=== PATIENT | female | born 1980 | race Caucasian/White ===

== ENCOUNTER 2016-05-30 22:28 | Inpatient (IN) | payer MEDICAID ==
[2016-05-30] MEDS ORDERED: Lidocaine 1% 30 ML SDV ONE (22:49)
[2016-05-30] MEDS ORDERED: Methylergonovine 0.2 MG/1 ML Amp ONE (23:05)
[2016-05-30] MEDS ORDERED: Misoprostol 400 MCG (4 X 100 MCG TAB) ONE (23:05)
[2016-05-30] MEDS ORDERED: Methylergonovine 0.2 MG/1 ML Amp IM PRN (23:13)
[2016-05-30] MEDS ORDERED: Misoprostol 400 MCG (4 X 100 MCG TAB) RECTAL PRN (23:13)
[2016-05-30] MEDS ORDERED: Sodium Chloride 0.9% 10 ML Syringe FLUSH PRN (23:13)
[2016-05-30] MEDS ORDERED: Acetaminophen 325 MG Tab PO PRN (23:13)
[2016-05-30] MEDS ORDERED: Carboprost Tromethamine 250 MCG/1 ML Amp IM PRN (23:13)
[2016-05-30] MEDS ORDERED: Lidocaine 1% 30 ML SDV INJECT PRN (23:13)
[2016-05-30] MEDS ORDERED: Ondansetron 4 MG/2 ML SDV IV PRN (23:13)
[2016-05-30] MEDS ORDERED: Lactated Ringers 1,000 ML IV SCH (23:15)
[2016-05-30] MEDS ORDERED: Ibuprofen 800 MG Tab PO PRN (23:21)
[2016-05-30] MEDS ORDERED: Zolpidem 5 MG Tab PO PRN (23:21)
[2016-05-30] MEDS ORDERED: Benzocaine/Menthol 20%-0.5% Spray 56 GM Canister TOP PRN (23:21)
[2016-05-30] MEDS ORDERED: Simethicone 80 MG Tab.Chew PO PRN (23:21)
[2016-05-30] MEDS ORDERED: Docusate Sodium 100 MG Cap PO PRN (23:21)
[2016-05-30 23:38] LABS: CHLORIDE,CL 105 mmol/L (101-111); SODIUM,NA 134 mmol/L (135-145)
[2016-05-31] MEDS ORDERED: Oxytocin/Normal Saline 30 UNIT/500 ML BAG IV SCH (00:15)
--- NOTE | 2016-05-31 03:54 | HP ---
CHIEF COMPLAINT: "I am in labor." HISTORY OF PRESENT ILLNESS: Ms. Soriano is a 35-year-old, 10, para 5-1- 3-6 female who reports to Labor and Delivery at [facility] in [facility] in active labor. On admission, she was noted to be completely dilated with a bulging bag of basilio. She did not have any care and before she broke her bag of basilio, I had Dr. Nabeel Graves here for the infant and we did have an ultrasound accomplished which put the fetus measuring at approximately 32-1/2 weeks gestation. Her last menstrual period was 09/29/2015 which puts her at approximately 35 weeks' gestation. She states she has been using methamphetamine throughout the . She denies any nausea, vomiting, or diarrhea. No fever or chills. No hematochezia, hematemesis, or hematuria. No dysuria, frequency, urgency with urination. No leg pain, leg edema, back pain, epigastric pain, scotomata, or headaches now. PAST MEDICAL HISTORY: Positive for migraine headaches, but she denies any history of hypertension, heart disease, seizure disorder, thyroid disorder, cancer, diabetes, thromboembolic disease, blood transfusions, or breast lesions. No history of asthma. PAST SURGICAL HISTORY: Cholecystectomy in 2016. SOCIAL HISTORY: She uses approximately a pack a day of tobacco/cigarettes. She denies any alcohol use. She does use methamphetamine, but denies any other drug use. She lives in [place] with her significant other and 3 of her children. FAMILY HISTORY: Positive for diabetes, hypertension, heart disease, cancer, and asthma. No family history of lung problems or kidney disease. ALLERGIES: Penicillin. OB HISTORY: 02/14/2015, delivery of 7 pounds 9 ounce male infant at approximately 37 weeks' gestation via normal spontaneous vaginal delivery. She had no care and was positive for methamphetamine during that also. 02/18/2014, delivery of a 7 pounds 9 ounce female infant via normal spontaneous vaginal delivery at term. 05/28/2012, delivery of a 5 pounds 15 ounce female infant via normal spontaneous vaginal delivery at 36 weeks' gestation. 03/16/2010, delivery of 5 pounds 7 ounces male via normal spontaneous vaginal delivery at term. November 21, 2004, delivery of 9 pounds 9 ounce male via normal spontaneous vaginal delivery in [place]. 08/16/2002, delivery of an 8 pounds 4 ounce male via normal spontaneous vaginal delivery at term. She has had 3 spontaneous VBs. REVIEW OF SYSTEMS: All pertinent positive and negative review of systems per HPI. All other systems are reviewed and are negative. OBJECTIVE: General: Well-developed, well-nourished female, in no acute distress secondary to contractions. HEENT: Unremarkable. Neck: Supple without adenopathy or thyromegaly. Lungs: Clear to auscultation. No wheezing, rhonchi, or rales noted. Cardiovascular: Regular rate and rhythm. No murmurs. Abdomen: Gravid, nontender. Contractions every 2 minutes. Category 1 strip with a few decelerations noted just before delivery. Cervix completely dilated. +[address] Nabeel Graves arrived, artificial rupture membranes occurred with moderate meconium-stained fluid. Back: No CVA tenderness. Extremities: No edema, erythema, or tenderness noted. DTRs 2+ over 4 in all areas. No clonus. Neurological: Sensorimotor intact. ASSESSMENT: 1. A 35-year-old, 10, para 5-1-3-6 female in active labor. 2. labor. 3. No care. 4. By last menstrual period approximately 35 weeks' gestation by ultrasound at 32-1/2 weeks' gestation. 5. Group B strep, unknown, was unable to obtain because of precipitous labor and delivery. 6. Positive methamphetamine use per patient. 7. Nicotine addiction. PLAN: 1. Vaginal delivery. 2. New OB labs accomplished. 3. Beveling Machine Operator to be consulted. 4. All questions answered. [facility] /[phone]
[2016-05-31] MEDS ORDERED: Prenatal Multivitamin with Calcium/Folic Acid/Iron Tab PO SCH (09:00)
[2016-05-31 09:32] VITALS: BP 101/60
--- NOTE | 2016-05-31 12:00 | PCM.DCSUM1 ---
Discharge Summary - Hospital Course Free Text/Narrative:: 35 y.o. 10 para 5-1-3-6 female LMP- September EDC June, EGA 34 6/7 weeks gestation by patient history arrived to labor and delivery completely dilated. No care. She was wanting to push. As soon as Dr. Rangel arrived Artificial rupture of membranes occured with moderate meconium stained fluid was noted. She had 3 pushes with delivery of a viable female , OA over a intact perineum. The weighed 4lbs 9oz with 's of 7 and 8. The patient recovered and the went to the nursery. The patient came in and delivered so precipitously we were unable to get antibiotics in. The infant was transferred to [facility] by their NICU team. The pateint recovered and tolerated her diet well. She was afebrile, vital signs were stable and she ambultated quite well. She had minimal lochia and desired to be discharged on Day # 1. Social work was consulted and a Form 960 was filled out because of positive urine drug screen for Methamphetamine/Amphetamine. The patient did admit to use throughout the . HPI Initial Comments: Discharge Instructions 1. Discharge to home. 2, Follow-up with Renato Pritchett in 6 weeks for recheck. 3. Ibuprofen/Tylenol for pain control. 4. No douching,Tampons or intercourse for 6 weeks. 5. Discharge instructions including follow-up, medications, activity, and diet was discussed. She understood this and is willing to comply with this. 6. Smoking cessation and Methamphetamine cessation discussed. 7. All questions answered. Discharge Diagnosis 1. 34 6/7 week Intrauterine by patient history. 2. No care. 3. Advanced dilitation on admission. 4. Artificial rupture of membranes. 5. Moderate meconium stained fluid. 6. Precipitous Normal spontaneous vaginal delivery. 7. Viable female , 4lbs 9 oz 's- 7 and 8. 8. Methamphetamine use throughout . 9. Nicotine addicition. - Discharge Data Discharge Date: 05/31/16 (PPD # 1) Discharge Disposition: Home, Self-Care 01 Condition: Good - Patient Summary/Data Consults: Consultations 05/30/16 23:13 Consult to Print Graphic Designer [CONS] Routine - Patient Instructions Diet: Regular Diet as Tolerated Activity: As Tolerated, Full Weight Bearing Showering/Bathing: July Shower Notify Provider of: Fever, Increased Pain, Swelling and Redness, Drainage, Nausea and/or Vomiting - Discharge Plan Home Medications: Home Meds . [No Known Home Meds] 05/31/16 [History] - Discharge Summary/Plan Comment DC Time >30 min.: Yes - General Info Date of Service: 05/31/16 (PPD # 1) Functional Status: Reports: pain controlled, tolerating diet, ambulating, urinating - Review of Systems General: Reports: No Symptoms HEENT: Reports: no symptoms Pulmonary: Reports: no symptoms Cardiovascular: Reports: No Symptoms Gastrointestinal: Reports: No symptoms Genitourinary: Reports: no symptoms Musculoskeletal: Reports: no symptoms Skin: Reports: no symptoms Neurological: Reports: No Symptoms Psychiatric: Reports: no symptoms - Patient Data Vitals - Most Recent: Last Vital Signs Temp 98.1 F 05/31/16 09:31 Pulse 68 05/31/16 09:31 Resp 16 05/31/16 09:31 BP 101/60 05/31/16 09:31 Pulse Ox 100 05/31/16 09:31 Weight - Most Recent: 225 lb I&O - Last 24 hours: Intake & Output 05/30/16 05/31/16 05/31/16 22:59 06:59 14:59 Intake Total 1500 Balance 1500 Lab Results - Last 24 hrs: Laboratory Results - last 24 hr 05/30/16 05/30/16 05/30/16 Range/Units 22:50 22:50 23:00 WBC 10.3 H (5.0-10.0) 10^3/uL RBC 4.87 (4.2-5.4) 10^6/uL Hgb 11.9 L (12.0-16.0) g/dL Hct 36.9 L (37.0-47.0) % MCV 75.8 L (80-100) fL MCH 24.4 L (27.0-34.0) pg MCHC 32.2 L (33.0-35.0) g/dL Plt Count 278 (150-450) 10^3/uL Sodium (135-145) mmol/L Potassium (3.6-5.0) mmol/L Chloride (101-111) mmol/L Carbon Dioxide (21.0-31.0) mmol/L Anion Gap BUN (7-18) mg/dL Creatinine (0.6-1.3) mg/dL Est Cr Clr Drug Dosing mL/min Estimated GFR (MDRD) BUN/Creatinine Ratio Glucose (74-105) mg/dL Uric Acid (2.6-7.2) mg/dL Calcium (8.4-10.2) mg/dl Total Bilirubin (0.2-1.0) mg/dL AST (10-42) IU/L ALT (10-60) IU/L Alkaline Phosphatase (42-121) IU/L Lactate Dehydrogenase (91-180) IU/L Total Protein (6.7-8.2) g/dl Albumin (3.2-5.5) g/dl Globulin Albumin/Globulin Ratio Urine Color Dark yellow (YELLOW) Urine Appearance Slightly cloudy (CLEAR) Urine pH 6.0 (5.0-9.0) Ur Specific [place] >= 1.030 (1.005-1.030) Urine Protein Negative (NEGATIVE) Urine Glucose (UA) Negative (NEGATIVE) Urine Ketones Trace H (NEGATIVE) Urine Occult Blood Negative (NEGATIVE) Urine Nitrite Negative (NEGATIVE) Urine Bilirubin Small H (NEGATIVE) Urine Urobilinogen 2.0 H (0.2-1.0) mg/dL Ur Leukocyte Esterase Negative (NEGATIVE) Urine RBC 0-5 /HPF Urine WBC 0-5 (0-5/HPF) /HPF Ur Epithelial Cells Moderate H /HPF Urine Bacteria Rare (0-FEW/HPF) /HPF Urine Mucus Moderate H /LPF Urine Opiates Screen Negative (NEGATIVE) Ur Oxycodone Screen Negative (NEGATIVE) Urine Methadone Screen Negative (NEGATIVE) Ur Barbiturates Screen Negative (NEGATIVE) U Tricyclic Antidepress Negative (NEGATIVE) Ur Phencyclidine Scrn Negative (NEGATIVE) Ur Amphetamine Screen Positive H (NEGATIVE) U Methamphetamines Scrn Positive H (NEGATIVE) Urine MDMA Screen Negative (NEGATIVE) U Benzodiazepines Scrn Negative (NEGATIVE) Urine Cocaine Screen Negative (NEGATIVE) U Marijuana (THC) Screen Negative (NEGATIVE) Blood Type Gel Antibody Screen 05/30/16 05/30/16 05/31/16 Range/Units 23:00 23:00 06:05 WBC 9.6 (5.0-10.0) 10^3/uL RBC 4.76 (4.2-5.4) 10^6/uL Hgb 11.6 L (12.0-16.0) g/dL Hct 36.8 L (37.0-47.0) % MCV 77.3 L (80-100) fL MCH 24.4 L (27.0-34.0) pg MCHC 31.5 L (33.0-35.0) g/dL Plt Count 258 (150-450) 10^3/uL Sodium 134 L (135-145) mmol/L Potassium 3.8 (3.6-5.0) mmol/L Chloride 105 (101-111) mmol/L Carbon Dioxide 19.0 L (21.0-31.0) mmol/L Anion Gap 13.8 BUN 9 (7-18) mg/dL Creatinine 0.5 L (0.6-1.3) mg/dL Est Cr Clr Drug Dosing 165.09 mL/min Estimated GFR (MDRD) > 60 BUN/Creatinine Ratio 18.00 Glucose 83 (74-105) mg/dL Uric Acid 5.1 (2.6-7.2) mg/dL Calcium 8.6 (8.4-10.2) mg/dl Total Bilirubin 0.5 (0.2-1.0) mg/dL AST 15 (10-42) IU/L ALT 8 L (10-60) IU/L Alkaline Phosphatase 156 H (42-121) IU/L Lactate Dehydrogenase 170 (91-180) IU/L Total Protein 7.4 (6.7-8.2) g/dl Albumin 3.0 L (3.2-5.5) g/dl Globulin 4.4 Albumin/Globulin Ratio 0.68 Urine Color (YELLOW) Urine Appearance (CLEAR) Urine pH (5.0-9.0) Ur Specific [place] (1.005-1.030) Urine Protein (NEGATIVE) Urine Glucose (UA) (NEGATIVE) Urine Ketones (NEGATIVE) Urine Occult Blood (NEGATIVE) Urine Nitrite (NEGATIVE) Urine Bilirubin (NEGATIVE) Urine Urobilinogen (0.2-1.0) mg/dL Ur Leukocyte Esterase (NEGATIVE) Urine RBC /HPF Urine WBC (0-5/HPF) /HPF Ur Epithelial Cells /HPF Urine Bacteria (0-FEW/HPF) /HPF Urine Mucus /LPF Urine Opiates Screen (NEGATIVE) Ur Oxycodone Screen (NEGATIVE) Urine Methadone Screen (NEGATIVE) Ur Barbiturates Screen (NEGATIVE) U Tricyclic Antidepress (NEGATIVE) Ur Phencyclidine Scrn (NEGATIVE) Ur Amphetamine Screen (NEGATIVE) U Methamphetamines Scrn (NEGATIVE) Urine MDMA Screen (NEGATIVE) U Benzodiazepines Scrn (NEGATIVE) Urine Cocaine Screen (NEGATIVE) U Marijuana (THC) Screen (NEGATIVE) Blood Type A POSITIVE Gel Antibody Screen Negative Med Orders - Current: Current Medications Acetaminophen (Tylenol) 650 mg PO Q4H PRN PRN Reason: Pain (Mild 1-3) and fever Benzocaine/Menthol (Dermoplast Pain Relief [place]) 0 gm TOP Q4H PRN PRN Reason: Perineal comfort measures Carboprost Tromethamine (Hemabate Ds) 250 mcg IM ASDIRECTED PRN PRN Reason: HEMORRHAGE Docusate Sodium (Colace) 100 mg PO BID PRN PRN Reason: Constipation Lactated Ringer's (Ringers, Lactated) 1,000 mls @ 125 mls/hr IV ASDIRECTED DANELLE Last Admin: 05/30/16 22:45 Dose: 125 mls/hr Oxytocin/Sodium Chloride (Pitocin In Ns 30 Unit/500 Ml) 30 unit in 500 mls @ 500 mls/hr IV TITRATE DANELLE; 500 MUNITS/MIN PRN Reason: Protocol Last Titration: 05/31/16 01:06 Dose: Infused Ibuprofen (Motrin) 800 mg PO Q8H PRN PRN Reason: Mild Pain or Fever Lidocaine HCl (Xylocaine-Mpf 1%) 10 ml INJECT ASDIRECTED PRN PRN Reason: Perineal Repair Methylergonovine Maleate (Methergine) 0.2 mg IM ASDIRECTED PRN PRN Reason: Hemorrhage Misoprostol (Cytotec) 800 mcg RECTAL ASDIRECTED PRN PRN Reason: Hemorrhage Ondansetron HCl (Zofran) 4 mg IV Q4H PRN PRN Reason: Nausea/Vomiting Prenat Multivit/[place]/Iron/Folic Ac ( Plus Iron) 1 each PO DAILY DANELLE Simethicone (Simethicone) 80 mg PO Q4H PRN PRN Reason: Gas Sodium Chloride (Saline Flush) 10 ml FLUSH ASDIRECTED PRN PRN Reason: Keep Vein Open Zolpidem Tartrate (Ambien) 5 mg PO BEDTIME PRN PRN Reason: Insomnia Stop: 05/31/16 21:01 Discontinued Medications Lidocaine HCl (Xylocaine-Mpf 1%) Confirm Administered Dose 30 ml .ROUTE .STK- MED ONE Stop: 05/30/16 22:50 Last Admin: 05/31/16 00:21 Dose: Not Given Methylergonovine Maleate (Methergine) Confirm Administered Dose 0.2 mg .ROUTE .STK-MED ONE Stop: 05/30/16 23:06 Last Admin: 05/31/16 00:22 Dose: Not Given Misoprostol (Cytotec) Confirm Administered Dose 1,200 mcg .ROUTE .STK-MED ONE Stop: 05/30/16 23:06 Last Admin: 05/31/16 00:22 Dose: Not Given - Exam General: Reports: alert, oriented, cooperative, no acute distress HEENT: Reports: Pupils equal, Pupils reactive Neck: Reports: supple Lungs: Reports: Clear to auscultation, Normal respiratory effort Cardiovascular: Reports: Regular Rate, Regular Rhythm, No Murmurs Abdomen: Reports: bowel sounds present, soft, no tenderness, no distension, other (Fundal height firm below the umbilicus) (Female) Exam: Normal external exam (Minimal lochia) Back Exam: Reports: normal inspection, full range of motion Extremities: Reports: no edema, normal pulses, no tenderness/swelling Skin: Reports: warm, dry, intact Neurological: Reports: no new focal deficit, normal gait, normal speech, normal tone, strength equal bilateral Psy/Mental Status: Reports: alert, normal affect, normal mood Discharge Operative/Procedures - Procedures Performed Operations/Procedure Comment: Normal spontaneous vaginal delivery over intact perineum. Viable female infant *Q Meaningful Use (DIS) - VTE *Q VTE Criteria *Q: - Stroke *Q Stroke Criteria *Q: - AMI *Q AMI Criteria *Q:
--- NOTE | 2016-05-31 12:26 | PCM.DEL ---
L & D Note - General Info Date of Service: 05/30/16 (1228) - Delivery Note Labor: spontaneous, augmented by ARM Delivery Outcome: Livebirth Delivery Mode: Spontaneous Presentation: Vertex Nuchal cord: none Anesthesia Type: None, Spinal Amniotic Fluid Description: Meconium stained (moderate stained fluid) Episiotomy Type: None Laceration: none Placenta: intact, spontaneous Cord: 3 vessels Estimated blood loss: 300 Resuscitation needed: Yes : suctioned, bulb syringe, stimulated, warmed, blanket used, warmer used Provider: Zia Reyna Score 1 min: 7 Score 5 min: 8 Second Stage Interventions: Reports: Pushing Effectively Delivery Comments (Free Text/Narrative):: , OA, Viable female infant over intact perineum Cord 3 vessel, not around neck, Placenta delivered by simple expression intact. Labia, Vagina and cervix inspected and intact. No complications. to nursery. Weight 4lbs 9oz, 's- 7 and 8. - Patient Data Vitals - most recent: Last Vital Signs Temp 98.1 F 05/31/16 09:31 Pulse 68 05/31/16 09:31 Resp 16 05/31/16 09:31 BP 101/60 05/31/16 09:31 Pulse Ox 100 05/31/16 09:31 Weight - most recent: 225 lb I&O - last 24 hours: Intake & Output 05/30/16 05/31/16 05/31/16 22:59 06:59 14:59 Intake Total 1500 Balance 1500 Lab Results last 24 hrs: Laboratory Results - last 24 hr 05/30/16 05/30/16 05/30/16 Range/Units 22:50 22:50 23:00 WBC 10.3 H (5.0-10.0) 10^3/uL RBC 4.87 (4.2-5.4) 10^6/uL Hgb 11.9 L (12.0-16.0) g/dL Hct 36.9 L (37.0-47.0) % MCV 75.8 L (80-100) fL MCH 24.4 L (27.0-34.0) pg MCHC 32.2 L (33.0-35.0) g/dL Plt Count 278 (150-450) 10^3/uL Sodium (135-145) mmol/L Potassium (3.6-5.0) mmol/L Chloride (101-111) mmol/L Carbon Dioxide (21.0-31.0) mmol/L Anion Gap BUN (7-18) mg/dL Creatinine (0.6-1.3) mg/dL Est Cr Clr Drug Dosing mL/min Estimated GFR (MDRD) BUN/Creatinine Ratio Glucose (74-105) mg/dL Uric Acid (2.6-7.2) mg/dL Calcium (8.4-10.2) mg/dl Total Bilirubin (0.2-1.0) mg/dL AST (10-42) IU/L ALT (10-60) IU/L Alkaline Phosphatase (42-121) IU/L Lactate Dehydrogenase (91-180) IU/L Total Protein (6.7-8.2) g/dl Albumin (3.2-5.5) g/dl Globulin Albumin/Globulin Ratio Urine Color Dark yellow (YELLOW) Urine Appearance Slightly cloudy (CLEAR) Urine pH 6.0 (5.0-9.0) Ur Specific [place] >= 1.030 (1.005-1.030) Urine Protein Negative (NEGATIVE) Urine Glucose (UA) Negative (NEGATIVE) Urine Ketones Trace H (NEGATIVE) Urine Occult Blood Negative (NEGATIVE) Urine Nitrite Negative (NEGATIVE) Urine Bilirubin Small H (NEGATIVE) Urine Urobilinogen 2.0 H (0.2-1.0) mg/dL Ur Leukocyte Esterase Negative (NEGATIVE) Urine RBC 0-5 /HPF Urine WBC 0-5 (0-5/HPF) /HPF Ur Epithelial Cells Moderate H /HPF Urine Bacteria Rare (0-FEW/HPF) /HPF Urine Mucus Moderate H /LPF Urine Opiates Screen Negative (NEGATIVE) Ur Oxycodone Screen Negative (NEGATIVE) Urine Methadone Screen Negative (NEGATIVE) Ur Barbiturates Screen Negative (NEGATIVE) U Tricyclic Antidepress Negative (NEGATIVE) Ur Phencyclidine Scrn Negative (NEGATIVE) Ur Amphetamine Screen Positive H (NEGATIVE) U Methamphetamines Scrn Positive H (NEGATIVE) Urine MDMA Screen Negative (NEGATIVE) U Benzodiazepines Scrn Negative (NEGATIVE) Urine Cocaine Screen Negative (NEGATIVE) U Marijuana (THC) Screen Negative (NEGATIVE) Blood Type Gel Antibody Screen 05/30/16 05/30/16 05/31/16 Range/Units 23:00 23:00 06:05 WBC 9.6 (5.0-10.0) 10^3/uL RBC 4.76 (4.2-5.4) 10^6/uL Hgb 11.6 L (12.0-16.0) g/dL Hct 36.8 L (37.0-47.0) % MCV 77.3 L (80-100) fL MCH 24.4 L (27.0-34.0) pg MCHC 31.5 L (33.0-35.0) g/dL Plt Count 258 (150-450) 10^3/uL Sodium 134 L (135-145) mmol/L Potassium 3.8 (3.6-5.0) mmol/L Chloride 105 (101-111) mmol/L Carbon Dioxide 19.0 L (21.0-31.0) mmol/L Anion Gap 13.8 BUN 9 (7-18) mg/dL Creatinine 0.5 L (0.6-1.3) mg/dL Est Cr Clr Drug Dosing 165.09 mL/min Estimated GFR (MDRD) > 60 BUN/Creatinine Ratio 18.00 Glucose 83 (74-105) mg/dL Uric Acid 5.1 (2.6-7.2) mg/dL Calcium 8.6 (8.4-10.2) mg/dl Total Bilirubin 0.5 (0.2-1.0) mg/dL AST 15 (10-42) IU/L ALT 8 L (10-60) IU/L Alkaline Phosphatase 156 H (42-121) IU/L Lactate Dehydrogenase 170 (91-180) IU/L Total Protein 7.4 (6.7-8.2) g/dl Albumin 3.0 L (3.2-5.5) g/dl Globulin 4.4 Albumin/Globulin Ratio 0.68 Urine Color (YELLOW) Urine Appearance (CLEAR) Urine pH (5.0-9.0) Ur Specific [place] (1.005-1.030) Urine Protein (NEGATIVE) Urine Glucose (UA) (NEGATIVE) Urine Ketones (NEGATIVE) Urine Occult Blood (NEGATIVE) Urine Nitrite (NEGATIVE) Urine Bilirubin (NEGATIVE) Urine Urobilinogen (0.2-1.0) mg/dL Ur Leukocyte Esterase (NEGATIVE) Urine RBC /HPF Urine WBC (0-5/HPF) /HPF Ur Epithelial Cells /HPF Urine Bacteria (0-FEW/HPF) /HPF Urine Mucus /LPF Urine Opiates Screen (NEGATIVE) Ur Oxycodone Screen (NEGATIVE) Urine Methadone Screen (NEGATIVE) Ur Barbiturates Screen (NEGATIVE) U Tricyclic Antidepress (NEGATIVE) Ur Phencyclidine Scrn (NEGATIVE) Ur Amphetamine Screen (NEGATIVE) U Methamphetamines Scrn (NEGATIVE) Urine MDMA Screen (NEGATIVE) U Benzodiazepines Scrn (NEGATIVE) Urine Cocaine Screen (NEGATIVE) U Marijuana (THC) Screen (NEGATIVE) Blood Type A POSITIVE Gel Antibody Screen Negative Med Orders - Current: Current Medications Acetaminophen (Tylenol) 650 mg PO Q4H PRN PRN Reason: Pain (Mild 1-3) and fever Benzocaine/Menthol (Dermoplast Pain Relief [place]) 0 gm TOP Q4H PRN PRN Reason: Perineal comfort measures Carboprost Tromethamine (Hemabate Ds) 250 mcg IM ASDIRECTED PRN PRN Reason: HEMORRHAGE Docusate Sodium (Colace) 100 mg PO BID PRN PRN Reason: Constipation Lactated Ringer's (Ringers, Lactated) 1,000 mls @ 125 mls/hr IV ASDIRECTED DANELLE Last Admin: 05/30/16 22:45 Dose: 125 mls/hr Oxytocin/Sodium Chloride (Pitocin In Ns 30 Unit/500 Ml) 30 unit in 500 mls @ 500 mls/hr IV TITRATE DANELLE; 500 MUNITS/MIN PRN Reason: Protocol Last Titration: 05/31/16 01:06 Dose: Infused Ibuprofen (Motrin) 800 mg PO Q8H PRN PRN Reason: Mild Pain or Fever Lidocaine HCl (Xylocaine-Mpf 1%) 10 ml INJECT ASDIRECTED PRN PRN Reason: Perineal Repair Methylergonovine Maleate (Methergine) 0.2 mg IM ASDIRECTED PRN PRN Reason: Hemorrhage Misoprostol (Cytotec) 800 mcg RECTAL ASDIRECTED PRN PRN Reason: Hemorrhage Ondansetron HCl (Zofran) 4 mg IV Q4H PRN PRN Reason: Nausea/Vomiting Prenat Multivit/Cardiology Technologist/Iron/Folic Ac ( Plus Iron) 1 each PO DAILY DANELLE Simethicone (Simethicone) 80 mg PO Q4H PRN PRN Reason: Gas Sodium Chloride (Saline Flush) 10 ml FLUSH ASDIRECTED PRN PRN Reason: Keep Vein Open Zolpidem Tartrate (Ambien) 5 mg PO BEDTIME PRN PRN Reason: Insomnia Stop: 05/31/16 21:01 Discontinued Medications Lidocaine HCl (Xylocaine-Mpf 1%) Confirm Administered Dose 30 ml .ROUTE .STK- MED ONE Stop: 05/30/16 22:50 Last Admin: 05/31/16 00:21 Dose: Not Given Methylergonovine Maleate (Methergine) Confirm Administered Dose 0.2 mg .ROUTE .STK-MED ONE Stop: 05/30/16 23:06 Last Admin: 05/31/16 00:22 Dose: Not Given Misoprostol (Cytotec) Confirm Administered Dose 1,200 mcg .ROUTE .STK-MED ONE Stop: 05/30/16 23:06 Last Admin: 05/31/16 00:22 Dose: Not Given - Problem List Review Problem List Initiated/Reviewed/Updated: Yes - My Orders Last 24 Hours: My Active Orders 05/30/16 22:38 OB Ltd 1 or More Fetus [US] Routine 05/30/16 23:00 HEPATITIS B SURFACE ANTIGEN [REF] Urgent HEPATITIS C AB [REF] Routine HIV 1,2 AB/AG COMBO SCREEN [REF] Routine RPR [REF] Routine RUBELLA ANTIBODY, IGG [REF] Routine 05/30/16 23:13 Patient Status [ADT] Routine Notify Provider Vital Signs OB [RC] ASDIRECTED Up ad Joann [RC] ASDIRECTED Vital Signs [RC] 08,20 Consult to Automotive Engineer [CONS] Routine Acetaminophen [Tylenol] 650 mg PO Q4H PRN Carboprost Tromethamine [Hemabate DS] 250 mcg IM ASDIRECTED PRN Lidocaine 1% [Xylocaine-MPF 1%] 10 ml INJECT ASDIRECTED PRN Methylergonovine [Methergine] 0.2 mg IM ASDIRECTED PRN Misoprostol [Cytotec] 800 mcg RECTAL ASDIRECTED PRN Ondansetron [Zofran] 4 mg IV Q4H PRN Sodium Chloride 0.9% [Saline Flush] 10 ml FLUSH ASDIRECTED PRN Saline Lock Insert [OM.PC] Routine Resuscitation Status Routine 05/30/16 23:15 Lactated Ringers [Ringers, Lactated] 1,000 ml IV ASDIRECTED 05/30/16 23:21 Benzocaine/Menthol [Dermoplast Pain Relief [place]] See Dose Instructions TOP Q4H PRN Docusate Sodium [Colace] 100 mg PO BID PRN Ibuprofen [Motrin] 800 mg PO Q8H PRN Simethicone 80 mg PO Q4H PRN Zolpidem [Ambien] 5 mg PO BEDTIME PRN Assess Lochia [WOMSER] Per Unit Routine Assess Uterine Involution [WOMSER] Per Unit Routine Breast Pump [WOMSER] Per Unit Routine Ice Therapy [OM.PC] Per Unit Routine Perineal Care [OM.PC] Per Unit Routine Sitz Bath [OM.PC] Per Unit Routine 05/30/16 23:23 Peripheral IV Discontinue [OM.PC] Routine 05/31/16 00:15 Oxytocin/Normal Saline [Pitocin in NS 30 UNIT/500 ML] 30 unit in 500 ml IV TITRATE 05/31/16 09:00 Vit with Ca/FA/Iron [ Plus Iron] 1 each PO DAILY 05/31/16 Breakfast Regular Diet [DIET]
--- NOTE | 2016-05-31 12:32 | PCM.PNPP ---
- General Info Date of Service: 05/31/16 (PPD # 1) Functional Status: Reports: pain controlled, tolerating diet, ambulating, urinating - Review of Systems General: Reports: No Symptoms HEENT: Reports: no symptoms Pulmonary: Reports: no symptoms Cardiovascular: Reports: No Symptoms Gastrointestinal: Reports: No symptoms Genitourinary: Reports: no symptoms Musculoskeletal: Reports: no symptoms Skin: Reports: no symptoms Neurological: Reports: No Symptoms Psychiatric: Reports: no symptoms - General Info Date of Service: 05/31/16 (PPD # 1) - Patient Data Vital Signs - most recent: Last Vital Signs Temp 98.1 F 05/31/16 09:31 Pulse 68 05/31/16 09:31 Resp 16 05/31/16 09:31 BP 101/60 05/31/16 09:31 Pulse Ox 100 05/31/16 09:31 Weight - most recent: 225 lb I&O - last 24 hours: Intake & Output 05/30/16 05/31/16 05/31/16 22:59 06:59 14:59 Intake Total 1500 Balance 1500 Lab Results - last 24 hrs: Laboratory Results - last 24 hr 05/30/16 05/30/16 05/30/16 Range/Units 22:50 22:50 23:00 WBC 10.3 H (5.0-10.0) 10^3/uL RBC 4.87 (4.2-5.4) 10^6/uL Hgb 11.9 L (12.0-16.0) g/dL Hct 36.9 L (37.0-47.0) % MCV 75.8 L (80-100) fL MCH 24.4 L (27.0-34.0) pg MCHC 32.2 L (33.0-35.0) g/dL Plt Count 278 (150-450) 10^3/uL Sodium (135-145) mmol/L Potassium (3.6-5.0) mmol/L Chloride (101-111) mmol/L Carbon Dioxide (21.0-31.0) mmol/L Anion Gap BUN (7-18) mg/dL Creatinine (0.6-1.3) mg/dL Est Cr Clr Drug Dosing mL/min Estimated GFR (MDRD) BUN/Creatinine Ratio Glucose (74-105) mg/dL Uric Acid (2.6-7.2) mg/dL Calcium (8.4-10.2) mg/dl Total Bilirubin (0.2-1.0) mg/dL AST (10-42) IU/L ALT (10-60) IU/L Alkaline Phosphatase (42-121) IU/L Lactate Dehydrogenase (91-180) IU/L Total Protein (6.7-8.2) g/dl Albumin (3.2-5.5) g/dl Globulin Albumin/Globulin Ratio Urine Color Dark yellow (YELLOW) Urine Appearance Slightly cloudy (CLEAR) Urine pH 6.0 (5.0-9.0) Ur Specific [place] >= 1.030 (1.005-1.030) Urine Protein Negative (NEGATIVE) Urine Glucose (UA) Negative (NEGATIVE) Urine Ketones Trace H (NEGATIVE) Urine Occult Blood Negative (NEGATIVE) Urine Nitrite Negative (NEGATIVE) Urine Bilirubin Small H (NEGATIVE) Urine Urobilinogen 2.0 H (0.2-1.0) mg/dL Ur Leukocyte Esterase Negative (NEGATIVE) Urine RBC 0-5 /HPF Urine WBC 0-5 (0-5/HPF) /HPF Ur Epithelial Cells Moderate H /HPF Urine Bacteria Rare (0-FEW/HPF) /HPF Urine Mucus Moderate H /LPF Urine Opiates Screen Negative (NEGATIVE) Ur Oxycodone Screen Negative (NEGATIVE) Urine Methadone Screen Negative (NEGATIVE) Ur Barbiturates Screen Negative (NEGATIVE) U Tricyclic Antidepress Negative (NEGATIVE) Ur Phencyclidine Scrn Negative (NEGATIVE) Ur Amphetamine Screen Positive H (NEGATIVE) U Methamphetamines Scrn Positive H (NEGATIVE) Urine MDMA Screen Negative (NEGATIVE) U Benzodiazepines Scrn Negative (NEGATIVE) Urine Cocaine Screen Negative (NEGATIVE) U Marijuana (THC) Screen Negative (NEGATIVE) Blood Type Gel Antibody Screen 05/30/16 05/30/16 05/31/16 Range/Units 23:00 23:00 06:05 WBC 9.6 (5.0-10.0) 10^3/uL RBC 4.76 (4.2-5.4) 10^6/uL Hgb 11.6 L (12.0-16.0) g/dL Hct 36.8 L (37.0-47.0) % MCV 77.3 L (80-100) fL MCH 24.4 L (27.0-34.0) pg MCHC 31.5 L (33.0-35.0) g/dL Plt Count 258 (150-450) 10^3/uL Sodium 134 L (135-145) mmol/L Potassium 3.8 (3.6-5.0) mmol/L Chloride 105 (101-111) mmol/L Carbon Dioxide 19.0 L (21.0-31.0) mmol/L Anion Gap 13.8 BUN 9 (7-18) mg/dL Creatinine 0.5 L (0.6-1.3) mg/dL Est Cr Clr Drug Dosing 165.09 mL/min Estimated GFR (MDRD) > 60 BUN/Creatinine Ratio 18.00 Glucose 83 (74-105) mg/dL Uric Acid 5.1 (2.6-7.2) mg/dL Calcium 8.6 (8.4-10.2) mg/dl Total Bilirubin 0.5 (0.2-1.0) mg/dL AST 15 (10-42) IU/L ALT 8 L (10-60) IU/L Alkaline Phosphatase 156 H (42-121) IU/L Lactate Dehydrogenase 170 (91-180) IU/L Total Protein 7.4 (6.7-8.2) g/dl Albumin 3.0 L (3.2-5.5) g/dl Globulin 4.4 Albumin/Globulin Ratio 0.68 Urine Color (YELLOW) Urine Appearance (CLEAR) Urine pH (5.0-9.0) Ur Specific [place] (1.005-1.030) Urine Protein (NEGATIVE) Urine Glucose (UA) (NEGATIVE) Urine Ketones (NEGATIVE) Urine Occult Blood (NEGATIVE) Urine Nitrite (NEGATIVE) Urine Bilirubin (NEGATIVE) Urine Urobilinogen (0.2-1.0) mg/dL Ur Leukocyte Esterase (NEGATIVE) Urine RBC /HPF Urine WBC (0-5/HPF) /HPF Ur Epithelial Cells /HPF Urine Bacteria (0-FEW/HPF) /HPF Urine Mucus /LPF Urine Opiates Screen (NEGATIVE) Ur Oxycodone Screen (NEGATIVE) Urine Methadone Screen (NEGATIVE) Ur Barbiturates Screen (NEGATIVE) U Tricyclic Antidepress (NEGATIVE) Ur Phencyclidine Scrn (NEGATIVE) Ur Amphetamine Screen (NEGATIVE) U Methamphetamines Scrn (NEGATIVE) Urine MDMA Screen (NEGATIVE) U Benzodiazepines Scrn (NEGATIVE) Urine Cocaine Screen (NEGATIVE) U Marijuana (THC) Screen (NEGATIVE) Blood Type A POSITIVE Gel Antibody Screen Negative Med Orders - Current: Current Medications Acetaminophen (Tylenol) 650 mg PO Q4H PRN PRN Reason: Pain (Mild 1-3) and fever Benzocaine/Menthol (Dermoplast Pain Relief Coy) 0 gm TOP Q4H PRN PRN Reason: Perineal comfort measures Carboprost Tromethamine (Hemabate Ds) 250 mcg IM ASDIRECTED PRN PRN Reason: HEMORRHAGE Docusate Sodium (Colace) 100 mg PO BID PRN PRN Reason: Constipation Lactated Ringer's (Ringers, Lactated) 1,000 mls @ 125 mls/hr IV ASDIRECTED DANELLE Last Admin: 05/30/16 22:45 Dose: 125 mls/hr Oxytocin/Sodium Chloride (Pitocin In Ns 30 Unit/500 Ml) 30 unit in 500 mls @ 500 mls/hr IV TITRATE DANELLE; 500 MUNITS/MIN PRN Reason: Protocol Last Titration: 05/31/16 01:06 Dose: Infused Ibuprofen (Motrin) 800 mg PO Q8H PRN PRN Reason: Mild Pain or Fever Lidocaine HCl (Xylocaine-Mpf 1%) 10 ml INJECT ASDIRECTED PRN PRN Reason: Perineal Repair Methylergonovine Maleate (Methergine) 0.2 mg IM ASDIRECTED PRN PRN Reason: Hemorrhage Misoprostol (Cytotec) 800 mcg RECTAL ASDIRECTED PRN PRN Reason: Hemorrhage Ondansetron HCl (Zofran) 4 mg IV Q4H PRN PRN Reason: Nausea/Vomiting Prenat Multivit/[place]/Iron/Folic Ac ( Plus Iron) 1 each PO DAILY [facility] Simethicone (Simethicone) 80 mg PO Q4H PRN PRN Reason: Gas Sodium Chloride (Saline Flush) 10 ml FLUSH ASDIRECTED PRN PRN Reason: Keep Vein Open Zolpidem Tartrate (Ambien) 5 mg PO BEDTIME PRN PRN Reason: Insomnia Stop: 05/31/16 21:01 Discontinued Medications Lidocaine HCl (Xylocaine-Mpf 1%) Confirm Administered Dose 30 ml .ROUTE .STK- MED ONE Stop: 05/30/16 22:50 Last Admin: 05/31/16 00:21 Dose: Not Given Methylergonovine Maleate (Methergine) Confirm Administered Dose 0.2 mg .ROUTE .STK-MED ONE Stop: 05/30/16 23:06 Last Admin: 05/31/16 00:22 Dose: Not Given Misoprostol (Cytotec) Confirm Administered Dose 1,200 mcg .ROUTE .STK-MED ONE Stop: 05/30/16 23:06 Last Admin: 05/31/16 00:22 Dose: Not Given - Interaction Infant Disposition, : [facility] in NICU in [place] Infant Interaction: Not Applicable Support Person: Significant Other - Recovery Exam Fundal Tone: Firm Fundal Level: 1 Fingerbreadths Below Umbilicus Fundal Placement: Midline Lochia Amount: Scant Lochia Color: Rubra/Red Perineum Description: Intact, Minimal Bruising/Swelling Episiotomy/Laceration: None Bladder Status: Voiding - Exam General: alert, oriented, cooperative, no acute distress HEENT: Pupils equal, Pupils reactive Neck: supple Lungs: Clear to auscultation, Normal respiratory effort Cardiovascular: Regular Rate, Regular Rhythm, No Murmurs Abdomen: bowel sounds present, soft, no tenderness, no distension Extremities: no edema, normal pulses, no tenderness/swelling Skin: warm, dry, intact Neurological: no new focal deficit Psy/Mental Status: alert, normal affect, normal mood - Problem List Review Problem List Initiated/Reviewed/Updated: Yes - My Orders Last 24 Hours: My Active Orders 05/30/16 22:38 OB Ltd 1 or More Fetus [US] Routine 05/30/16 23:00 HEPATITIS B SURFACE ANTIGEN [REF] Urgent HEPATITIS C AB [REF] Routine HIV 1,2 AB/AG COMBO SCREEN [REF] Routine RPR [REF] Routine RUBELLA ANTIBODY, IGG [REF] Routine 05/30/16 23:13 Patient Status [ADT] Routine Notify Provider Vital Signs OB [RC] ASDIRECTED Up ad Joann [RC] ASDIRECTED Vital Signs [RC] 08,20 Consult to C T Tech [CONS] Routine Acetaminophen [Tylenol] 650 mg PO Q4H PRN Carboprost Tromethamine [Hemabate DS] 250 mcg IM ASDIRECTED PRN Lidocaine 1% [Xylocaine-MPF 1%] 10 ml INJECT ASDIRECTED PRN Methylergonovine [Methergine] 0.2 mg IM ASDIRECTED PRN Misoprostol [Cytotec] 800 mcg RECTAL ASDIRECTED PRN Ondansetron [Zofran] 4 mg IV Q4H PRN Sodium Chloride 0.9% [Saline Flush] 10 ml FLUSH ASDIRECTED PRN Saline Lock Insert [OM.PC] Routine Resuscitation Status Routine 05/30/16 23:15 Lactated Ringers [Ringers, Lactated] 1,000 ml IV ASDIRECTED 05/30/16 23:21 Benzocaine/Menthol [Dermoplast Pain Relief Coy] See Dose Instructions TOP Q4H PRN Docusate Sodium [Colace] 100 mg PO BID PRN Ibuprofen [Motrin] 800 mg PO Q8H PRN Simethicone 80 mg PO Q4H PRN Zolpidem [Ambien] 5 mg PO BEDTIME PRN Assess Lochia [WOMSER] Per Unit Routine Assess Uterine Involution [WOMSER] Per Unit Routine Breast Pump [WOMSER] Per Unit Routine Ice Therapy [OM.PC] Per Unit Routine Perineal Care [OM.PC] Per Unit Routine Sitz Bath [OM.PC] Per Unit Routine 05/30/16 23:23 Peripheral IV Discontinue [OM.PC] Routine 05/31/16 00:15 Oxytocin/Normal Saline [Pitocin in NS 30 UNIT/500 ML] 30 unit in 500 ml IV TITRATE 05/31/16 09:00 Vit with Ca/FA/Iron [ Plus Iron] 1 each PO DAILY 05/31/16 Breakfast Regular Diet [DIET] - Assessment Assessment:: PPD # 1 S/P Methamphetamine Poitive in urine drug screen Tolerating diet well Minimal lochia Ambulating well - Plan Plan:: Discharge to home today Follow up with Renato Pritchett in 6 weeks Ibuprofen/Tylenol for pain control.
== END 2016-05-31 17:59 | disposition home or self-care (01) | DRG 775 ==
LOC: DL.OB 22:28 → UNDOADMOB 22:28 → DL.OB 23:06 → OBSVTOIN 23:06 → EEVIPCON 23:06
PROVIDERS: ADMIT Obstetrics & Gynecology; ATTEND Obstetrics & Gynecology
PROC: 10E0XZZ Delivery of Products of Conception, External Approach (ICD-10-PCS; principal; 2016-05-30)
PROC: 10907ZC Drainage of Amniotic Fluid, Therapeutic from Products of Conception, Via Natural or Artificial Opening (ICD-10-PCS; 2016-05-30)
DX: O62.3 Precipitate labor (principal); O99.324 Drug use complicating childbirth; O09.33 Supervision of pregnancy with insufficient antenatal care, third trimester; O99.334 Smoking (tobacco) complicating childbirth; O77.0 Labor and delivery complicated by meconium in amniotic fluid; Z3A.34 34 weeks gestation of pregnancy; Z37.0 Single live birth; F15.10 Other stimulant abuse, uncomplicated; F17.210 Nicotine dependence, cigarettes, uncomplicated
CPT/HCPCS: 36415; 76815; 80053; 80305; 81001; 83615; 84550; 85027; 86592; 86762; 86803; 86850; 86900; 86901; 87340; 87389; A9270-GY; J2590; J7120

== ENCOUNTER 2017-11-30 22:18 | Emergency (ER) | payer MEDICAID ==
[2017-11-30 22:40] VITALS: BP 153/100
--- NOTE | 2017-11-30 23:57 | EDM.PDOC ---
ED HPI GENERAL MEDICAL PROBLEM - General Chief Complaint: Lower Extremity Injury/Pain Stated Complaint: POSSIBLT BROKE ANKLE [id number] Time Seen by Provider: 11/30/17 22:45 Source of Information: Reports: Patient History Limitations: Reports: No Limitations - History of Present Illness INITIAL COMMENTS - FREE TEXT/NARRATIVE: right ankle pain after rolling ankle off edge of curb approximately 3 pm today. Walking initially after Treatments HEMATOLOGY NURSE EDUCATOR: Reports: Cold Therapy Right Ankle Pain Score (Numeric/FACES): 9 - Related Data Allergies Allergy/AdvReac Type Severity Reaction Status Date / Time Penicillins Allergy Mild Rash Verified 11/30/17 22:38 Home Meds: Home Meds . [No Known Home Meds] 05/31/16 [History] Past Medical History - Past Health History Medical/Surgical History: Denies Medical/Surgical History HEENT History: Reports: Impaired Vision Other HEENT History: Wears glasses Cardiovascular History: Reports: None Respiratory History: Reports: None Gastrointestinal History: Reports: None Other Gastrointestinal History: removal gallbladder in 1996 Genitourinary History: Reports: None VEHICLE DETAILER History: Reports: Other VEHICLE DETAILER History: spontaneous abs x3 Musculoskeletal History: Reports: None Neurological History: Reports: None Psychiatric History: Reports: Depression Other Psychiatric History: 1994 depression/bi-polar med Endocrine/Metabolic History: Reports: None Hematologic History: Reports: None Immunologic History: Reports: None Oncologic (Cancer) History: Reports: None Dermatologic History: Reports: None - Infectious Disease History Infectious Disease History: Reports: Chicken Pox, Hepatitis C - Past Surgical History Head Surgeries/Procedures: Reports: None GI Surgical History: Reports: Cholecystectomy Social & Family History - Family History Family Medical History: Noncontributory - Tobacco Use Smoking Status *Q: Current Every Day Smoker Years of Tobacco use: 16 Packs/Tins Daily: 0.5 - Caffeine Use Caffeine Use: Reports: Coffee - Recreational Drug Use Recreational Drug Use: No Review of Systems - Review of Systems Review Of Systems: ROS reveals no pertinent complaints other than HPI. ED EXAM, GENERAL - Physical Exam Exam: See Below Exam Limited By: No Limitations General Appearance: Alert, Mild Distress Ears: Normal External Exam Nose: Normal Inspection Throat/Mouth: Normal Inspection Head: Atraumatic, Normocephalic Neck: Normal Inspection Cardiovascular: Normal Peripheral Pulses (Female) Exam: Other (estimated 38 weeks) Back Exam: Normal Inspection Extremities: Other (mild swelling lateral right ankle ) Neurological: Alert, Oriented, Normal Cognition Psychiatric: Normal Affect Skin Exam: Warm, Dry, Intact Course - Vital Signs Last Recorded V/S: Last Vital Signs Temp 98.3 F 11/30/17 22:39 Pulse 101 H 11/30/17 22:39 Resp 18 11/30/17 22:39 BP 153/100 H 11/30/17 22:39 Pulse Ox 98 11/30/17 22:39 - Orders/Labs/Meds Orders: Active Orders 24 hr Category Date Time Status Ankle Min 3V Rt [CR] Urgent Exams 11/30/17 22:47 Taken Departure - Departure Time of Disposition: 23:53 Disposition: Home, Self-Care 01 Condition: Good Clinical Impression: Right ankle sprain Qualifiers: Encounter type: initial encounter Involved ligament of ankle: unspecified ligament Qualified Code(s): S93.401A - Sprain of unspecified ligament of right ankle, initial encounter - Discharge Information Instructions: Ankle Sprain, [id number] Additional Instructions: ice, elevate grace wrap weight bearing as tolerated follow up as needed tylenol 650mg alternating with ibuprofen 600mg every 4 hours as needed for pain - My Orders Last 24 Hours: My Active Orders 11/30/17 22:47 Ankle Min 3V Rt [CR] Urgent - Assessment/Plan Last 24 Hours: My Active Orders 11/30/17 22:47 Ankle Min 3V Rt [CR] Urgent
== END 2017-12-01 00:04 | disposition home or self-care (01) ==
LOC: DL.ED 22:18
DX: S93.401A Sprain of unspecified ligament of right ankle, initial encounter (principal); Z88.0 Allergy status to penicillin; F17.210 Nicotine dependence, cigarettes, uncomplicated; X50.9XXA Other and unspecified overexertion or strenuous movements or postures, initial encounter
CPT/HCPCS: 73610-RT; 99283

== ENCOUNTER 2017-12-02 15:36 | Inpatient (IN) | payer MEDICAID ==
--- NOTE | 2017-12-02 15:47 | PCM.SN ---
- Free Text/Narrative Note: OB Triage 12/02/17 Chief Complaint: elevated blood pressures HPI: Deena is a 37 year old at 38w6d who presents from clinic for intermittent and blood pressure monitoring while obtaining a 24 hour urine protein. She was seen in the clinic today for her initial visit after and ER visit a few days prior showed her blood pressure to be elevated. She reports active movement. OB history: All deliveries were vaginal and between 36 and 39 weeks estimated gestation. She has lacked care with every , no prior complications noted per patient. ROS: Negative for headache, nausea, vomiting, diarrhea, fever, chills, abdominal pain, hematuria, dysuria, contractions, loss of fluid or bleeding per vagina. Medical Hx: reviewed and updated in clinic chart. Surgical Hx: reviewed and updated in clinic chart. Family Hx: reviewed and updated in clinic chart. Labs: OB Panel: Blood Type: A Positive Remainder pending, drawn today Physical Exam: Vitals from clinic: BP 154/96, Pulse 80, Wt 219lb, Resp 16 Gen: No distress CV: Well-perfused, 2+ distal pulses, regular rate and rhythm, no audible murmurs Resp: Non-labored, symmetrical chest expansion, clear to auscultation Abd: gravid, soft, non tender Ext: Moves all extremities, no edema. SVE: 4/50/-3 FHT: 135 CTX: none Assessment: Deena is a 37 year old at 38w6d who presents from clinic for intermittent and blood pressure monitoring while obtaining a 24 hour urine protein. Plan: - Admit for observation - Strip per shift - BP every 4 hours - 24 hour protein Ruby Alvarez MD
--- NOTE | 2017-12-03 09:06 | PCM.SN ---
- Free Text/Narrative Note: S: Patient is doing well. She is starting to become uncomfortable with occasional contractions. She also feels like she lost her mucous plug early this morning. Her NST has remained reactive and reassuring. Blood pressure has remained 140/70s overnight. Patient continues to deny headaches, nausea, swelling or blurred vision. Currently completing a 24 hour urine protein. O: Vital: BP 139/76, HR: 67, Temp: 98.0, satting 97% on RA Abd: gravid, soft, non-tender NST: FHT baseline 140 bpm, moderate variability, accelerations present, no decelerations noted, zeynep every 4-6 minutes. Impression: reactive cat 1 tracing. A: Deena is admitted for observation for induced hypertension at term who is starting to have some contractions. P: - Continue 24 hour urine protein - Strip per shift, unless patient more uncomfortable, then place on continuous monitoring - Monitor BP - Will reassess this afternoon when labs complete Ruby Alvarez MD
[2017-12-03] MEDS ORDERED: Lactated Ringers 500 ML IV ONE (17:46)
[2017-12-03] MEDS ORDERED: Tranexamic Acid 1,000 MG in Sodium Chloride 0.9% 100 ML IV PRN (17:46)
[2017-12-03] MEDS ORDERED: Carboprost Tromethamine 250 MCG/1 ML Amp IM PRN (17:46)
[2017-12-03] MEDS ORDERED: Misoprostol 400 MCG (4 X 100 MCG TAB) RECTAL PRN (17:46)
[2017-12-03] MEDS ORDERED: Methylergonovine 0.2 MG/1 ML Amp IM PRN (17:46)
[2017-12-03] MEDS ORDERED: Ondansetron 4 MG/2 ML SDV IV PRN (17:46)
[2017-12-03] MEDS ORDERED: Lidocaine 1% 30 ML SDV INJECT PRN (17:46)
[2017-12-03] MEDS ORDERED: Sodium Chloride 0.9% 10 ML Syringe FLUSH PRN (17:46)
--- NOTE | 2017-12-03 17:53 | PCM.SN ---
- Free Text/Narrative Note: Patient was seen and evaluated this afternoon. Lab result from 24 hour urine protein was 144. Her blood pressure remains in the 140s systolic with an occasional read in the 150s. She is noting contractions when she is up and walking. No headaches, blurred vision or nausea. Discussed treatment options with patient. Will proceed with induction today for induced hypertension at term.
[2017-12-03] MEDS ORDERED: Lactated Ringers 1,000 ML IV SCH (18:00)
[2017-12-03] MEDS ORDERED: Oxytocin/Normal Saline 30 UNIT/500 ML BAG IV SCH (18:00)
[2017-12-03] MEDS ORDERED: Bupivacaine 0.75%/D5W 2 ML Amp ONE (20:39)
[2017-12-03] MEDS ORDERED: fentaNYL 100 MCG/2 ML SDV ONE (20:39)
[2017-12-03] MEDS ORDERED: EPINEPHrine 1 MG/ML SDV ONE (20:39)
--- NOTE | 2017-12-03 21:12 | PCM.PRNOTE ---
- Free Text/Narrative Note: Requested to provide analgesia to full term patient in severe pain. Upon entering the room, patient is lying on right side in bed complaining of severe abdominal/pelvic pain and discomfort. Procedure was discussed with patient including adverse outcomes and expectations. Pt consented to analgesia, SAB/ IT. Pt placed into a proper sitting position. Landmarks for SAB/IT were identified and marked. Hands were washed and appropriate PPE was applied. Back was prepped with betadine x3. A sterile, transparent, fenestrated drape was applied. Excess betadine was removed. Using 3 mL of a 1% lidocaine solution , a skin wheel was placed at the L2/L3 interspace. A 24 ga (4 inch) [place] spinal needle was inserted until positive for CSF. Negative for heme or paresthesias. Injected fentanyl 30 mcg, sufentanil 25 mcg, and 9 mg of a 0.75% bupivacaine solution with an epi wash. Pt was placed left lateral position for approximately 20 minutes. There were zero complications or adverse outcomes. Will continue to monitor. Procedure Date & Time: 12-03-17 [id number]
[2017-12-03] MEDS: Prenatal Multivitamin with Calcium/Folic Acid/Iron Tab PO SCH (21:45)
--- NOTE | 2017-12-03 23:09 | PCM.DEL ---
L & D Note - General Info Date of Service: 12/03/17 (2257) Mother's Due Date: 12/10/17 - Delivery Note Labor: Induced by ARM Delivery Outcome: Livebirth Infant Delivery Method: Spontaneous Vaginal Delivery-Single Delivery Mode: Spontaneous Presentation: Right Occiput Posterior (ROP) Nuchal Cord: Present (loose, delivered through) Anesthesia Type: Intrathecal Amniotic Fluid Description: Clear Episiotomy Type: None Laceration: None Placenta: Intact, Spontaneous Cord: 3 Vessels [place]: Suctioned, Stimulated Score 1 min: 8 Score 5 min: 9 Induction Criteria - Mckay Score Mckay Score Dilation: 3-4 cm Mckay Score Effacement: 60-70% Mckay Score 's Station: -2 Mckay Score Consistency: Soft Mckay Score Cervix Position: Midposition Mckay Score Total: 8 Mckay Score Presenting Part: Reports: Cephalic - Induction Gestational Age >/= 39 wks: Yes Estimated Pelvis: Reports: Adequate Reassuring Monitoring Strip: Yes Absence of Tachy Systole: Yes - General Info Date of Service: 12/03/17 - Patient Data Vitals - Most Recent: Last Vital Signs Temp 98.2 F 12/03/17 22:00 Pulse 58 L 12/03/17 22:00 Resp 18 12/03/17 22:00 BP 139/71 12/03/17 22:00 Pulse Ox 98 12/03/17 08:00 Weight - Most Recent: 99.337 kg Lab Results Last 24 Hours: Laboratory Results - last 24 hr 12/03/17 Range/Units 16:30 Ur Collection Duration 24 hrs Urine Total Volume 3600 mL/24hr Ur Total Protein Conc 4 mg/dL Ur Total Protein 24 Hr 144 H (50-100) mg/24H - Problem List & Annotations (1) induced hypertension SNOMED Code(s): 10533615 Code(s): O13.9 - GESTATIONAL HTN W/O SIGNIFICANT PROTEINURIA, UNSP TRIMESTER Status: Acute Current Visit: Yes Qualifiers: Trimester: third trimester Qualified Code(s): O13.3 - Gestational [ -induced] hypertension without significant proteinuria, third trimester (2) Normal vaginal delivery of eighth SNOMED Code(s): 56730789, 137156722 Code(s): O80 - ENCOUNTER FOR FULL-TERM UNCOMPLICATED DELIVERY Status: Acute Current Visit: Yes - Problem List Review Problem List Initiated/Reviewed/Updated: Yes - Assessment Assessment:: Deena is a 37 yo induced for induced hypertension at term. - Plan Plan:: Routine Cares Monitor blood pressures Encourage maternal bonding
[2017-12-04] MEDS: Ibuprofen 800 MG Tab PO PRN ×2 (09:38→18:00)
[2017-12-04] MEDS: Prenatal Multivitamin with Calcium/Folic Acid/Iron Tab PO SCH ×2 (09:39→23:32)
[2017-12-04] MEDS: Acetaminophen 325 MG Tab PO PRN ×2 (09:39→16:36)
--- NOTE | 2017-12-04 16:49 | PN ---
DATE: 12/04/2017 SUBJECTIVE: The patient is day #1, status post vaginal delivery. She was induced for -induced hypertension. She did have limited care. Her and baby are both doing well this morning. PHYSICAL EXAMINATION: Vital Signs: Patient's heart rate 75 to 90, temperature 37.1. She has been afebrile. Blood pressure is 122-163/54-79. However, her current blood pressure is normal. Respiratory rate is 16-18. Abdomen: Her fundus is firm, below the umbilicus. Lochia is minimal. Extremities: Have no tenderness, no edema. LABORATORY DATA: Prior to delivery, her hemoglobin was 11.1, and platelets were 241. ASSESSMENT AND PLAN: day #1, status post vaginal delivery with resolving -induced hypertension. Mom and baby are both doing well. She will continue care. Likely discharge tomorrow. [facility] /[id number]
[2017-12-04] MEDS ORDERED: Tranexamic Acid 1,000 MG in Sodium Chloride 0.9% 100 ML IV PRN (18:03)
[2017-12-04] MEDS ORDERED: Oxytocin 10 Units/1 ML SDV IM PRN (18:03)
[2017-12-04] MEDS ORDERED: Sodium Chloride 0.9% 10 ML Syringe FLUSH PRN (18:03)
[2017-12-04] MEDS ORDERED: Ibuprofen 800 MG Tab PO PRN (18:03)
[2017-12-04] MEDS ORDERED: Carboprost Tromethamine 250 MCG/1 ML Amp IM PRN (18:03)
[2017-12-04] MEDS ORDERED: Misoprostol 400 MCG (4 X 100 MCG TAB) RECTAL PRN (18:03)
[2017-12-04] MEDS ORDERED: Simethicone 80 MG Tab.Chew PO PRN (18:03)
[2017-12-04] MEDS ORDERED: Acetaminophen 325 MG Tab PO PRN (18:03)
[2017-12-04] MEDS ORDERED: Benzocaine/Menthol 20%-0.5% Spray 56 GM Canister TOP PRN (18:03)
[2017-12-04] MEDS: Docusate Sodium 100 MG Cap PO PRN (23:32)
[2017-12-05] MEDS: Prenatal Multivitamin with Calcium/Folic Acid/Iron Tab PO SCH (08:49)
[2017-12-05] MEDS: Docusate Sodium 100 MG Cap PO PRN (08:49)
[2017-12-05 09:04] VITALS: BP 124/67
[2017-12-05] MEDS ORDERED: Diphtheria,Pertussis(Acell),Tetanus Vaccine 0.5 ML SDV IM ONE (11:26)
[2017-12-05] MEDS ORDERED: Bupivacaine 0.75%/D5W 2 ML Amp INJECT ONE (14:29)
[2017-12-05] MEDS ORDERED: fentaNYL 100 MCG/2 ML SDV ITHECAL ONE (14:29)
[2017-12-05] MEDS ORDERED: EPINEPHrine 1 MG/ML SDV IV ONE (14:29)
== END 2017-12-05 14:30 | disposition home or self-care (01) | DRG 775 ==
LOC: DL.OBCHECK 15:36 → UNDOADMOB 15:37 → DL.OB 15:37 → OBSVTOIN 12-03 22:57
PROVIDERS: ADMIT Family Medicine; ATTEND Family Medicine
PROC: 10E0XZZ Delivery of Products of Conception, External Approach (ICD-10-PCS; principal; 2017-12-03)
PROC: 10907ZC Drainage of Amniotic Fluid, Therapeutic from Products of Conception, Via Natural or Artificial Opening (ICD-10-PCS; principal; 2017-12-03)
PROC: 3E0R3BZ Introduction of Anesthetic Agent into Spinal Canal, Percutaneous Approach (ICD-10-PCS; principal; 2017-12-03)
DX: O13.4 Gestational [pregnancy-induced] hypertension without significant proteinuria, complicating childbirth (principal); Z3A.38 38 weeks gestation of pregnancy; Z37.0 Single live birth; Z67.10 Type A blood, Rh positive
CPT/HCPCS: 36415; 59025; 59409; 80305-QW; 84156; 85027; 90471; 90715; A9270-GY; J2405; J2590; J7120

== ENCOUNTER 2023-02-12 13:47 | Emergency (ER) | payer MEDICAID ==
[2023-02-12] MEDS ORDERED: Ondansetron 4 MG/2 ML SDV IV ONE (13:48)
[2023-02-12] MEDS ORDERED: Thiamine 100 MG in Sodium Chloride 0.9% 100 ML IV ONE (13:48)
[2023-02-12] MEDS ORDERED: Sodium Chloride 0.9% 1,000 ML IV ONE (13:48)
[2023-02-12] MEDS ORDERED: LORazepam 2 MG/ML SDV IVPUSH ONE (13:49)
[2023-02-12] MEDS ORDERED: Sodium Chloride 0.9% 10 ML Syringe FLUSH PRN (13:51)
[2023-02-12 14:06] LABS: BASOPHILS PERCENT AUTO 0.3 % (0.0-1.0); EOSINOPHILS PERCENT AUTO 1.7 % (1.0-3.0); HEMATOCRIT 41.5 % (37.0-47.0); HEMOGLOBIN 13.8 g/dL (12.0-16.0); MEAN CORPUSCULAR HGB CONC 33.3 g/dL (33.0-35.0); MEAN CORPUSCULAR VOLUME 87.2 fL (80-100); MONOCYTES PERCENT AUTO 8.4 % (2-8); NEUTROPHILS PERCENT AUTO 72.6 % (42.2-75.2); PLATELET COUNT,PLT 317 10^3/uL (150-450); RED BLOOD CELL COUNT 4.76 10^6/uL (4.2-5.4); WHITE BLOOD CELL COUNT,WBC 9.3 10^3/uL (5.0-10.0)
[2023-02-12 14:12] LABS: APPEARANCE,URINE CLEAR (CLEAR); BILIRUBIN,URINE SMALL (NEGATIVE); COLOR,URINE YELLOW (YELLOW); GLUCOSE,URINE NEGATIVE (NEGATIVE); KETONES,URINE NEGATIVE (NEGATIVE); LEUKOCYTE ESTERASE,URINE NEGATIVE (NEGATIVE); NITRITE,URINE NEGATIVE (NEGATIVE); OCCULT BLOOD,URINE NEGATIVE (NEGATIVE); PROTEIN,URINE 100 (NEGATIVE)
[2023-02-12 14:20] LABS: AMPHETAMINES,URINE POSITIVE (NEGATIVE); BARBITURATES,URINE NEGATIVE (NEGATIVE); BENZODIAZEPINE,URINE NEGATIVE (NEGATIVE); MDMA (ECSTASY), URINE POSITIVE (NEGATIVE); METHADONE,URINE NEGATIVE (NEGATIVE); METHAMPHETAMINES,URINE POSITIVE (NEGATIVE); OPIATES,URINE NEGATIVE (NEGATIVE); OXYCODONE,URINE NEGATIVE (NEGATIVE); PHENCYCLIDINE,URINE NEGATIVE (NEGATIVE); TCA,URINE NEGATIVE (NEGATIVE)
[2023-02-12 14:35] LABS: INR 0.9 (0.9-1.2); PROTHROMBIN TIME 9.3 SEC (9.0-12.0); PTT,PARTIAL THROMBOPLSTIN TIME 24.5 SEC (22.0-34.0)
[2023-02-12 14:39] LABS: A/G RATIO 0.9; ALANINE AMINOTRANSFERASE,ALT 55 U/L (14-59); ALBUMIN 3.8 g/dL (3.4-5.0); ALKALINE PHOSPHATASE 85 U/L (46-116); ASPARTATE AMNIOTRANSFERASE,AST 40 U/L (15-37); BILIRUBIN TOTAL 0.6 mg/dL (0.2-1.0); BLOOD UREA NITROGEN,BUN 10 mg/dL (7-18); BUN/CREATININE RATIO 12.7 (No establ ref range); CALCIUM 8.9 mg/dL (8.5-10.1); CARBON DIOXIDE,CO2 28 mmol/L (21-32); CHLORIDE,CL 104 mmol/L (98-107); CREATININE 0.79 mg/dL (0.55-1.02); EST CRCL DRUG DOSING (CG) 97.94 mL/min; GLUCOSE RANDOM 101 mg/dL (70-99); MAGNESIUM 1.6 mg/dL (1.8-2.4); PROTEIN TOTAL,TP 8.2 g/dL (6.4-8.2); SODIUM,NA 140 mmol/L (136-145); TSH ULTRASENSITIVE 1.52 uIU/mL (0.36-3.74)
[2023-02-12 14:50] LABS: ACETAMINOPHEN 0 ug/mL (10-30 (Therapeutic)); ESTIMATED GFR 96 mL/min (>=60); ETHANOL BLOOD MEDICAL < 3 mg/dL (0)
[2023-02-12 14:52] LABS: BACTERIA,URINE FEW /HPF (0-FEW/HPF); EPITHELIAL CELLS,URINE FEW /HPF (NOT SEEN); MUCUS,URINE MODERATE /LPF (NOT SEEN); RBC,URINE 0-5 /HPF (0-5); WBC,URINE 0-5 /HPF (0-5/HPF)
[2023-02-12 15:00] LABS: CORONAVIRUS COVID-19 NAA NEGATIVE (NEGATIVE); INFLUENZA A NAA NEGATIVE (NEGATIVE); INFLUENZA B NAA NEGATIVE (NEGATIVE); RESPIRATORY SYNCYTIAL VIR NAA NEGATIVE (NEGATIVE)
[2023-02-17 11:46] LABS: C.TRACHOMATIS BY TMA Negative (Negative); M GENITALIUM Negative (Negative); M GENITALIUM SOURCE Urine; N.GONORRHOEAE BY TMA Negative (Negative); SOURCE Urine
== END 2023-02-12 15:33 | disposition home or self-care (01) ==
LOC: MERGE 13:47 → DL.ED 13:47
DX: F10.930 Alcohol use, unspecified with withdrawal, uncomplicated (principal); F15.20 Other stimulant dependence, uncomplicated; F16.10 Hallucinogen abuse, uncomplicated; F17.210 Nicotine dependence, cigarettes, uncomplicated; Z20.822 Contact with and (suspected) exposure to COVID-19; Z88.0 Allergy status to penicillin
CPT/HCPCS: 0241U; 36415; 80053; 80143; 80179; 80305-QW; 80307; 81001; 81025; 82140; 83735; 84443; 85025; 85610; 85730; 87491; 87563; 87591; 96365; 96375; 99284; 99285-25; J2060; J2405; J3411; J3490; J7030

== ENCOUNTER 2023-06-20 20:09 | Emergency (ER) | payer MEDICAID ==
[2023-06-20 20:22] LABS: BASOPHILS PERCENT AUTO 0.3 % (0.0-1.0); EOSINOPHILS PERCENT AUTO 0.8 % (1.0-3.0); HEMATOCRIT 39.1 % (37.0-47.0); HEMOGLOBIN 12.5 g/dL (12.0-16.0); LYMPHOCYTES PERCENT AUTO 26.7 % (20.5-50.1); MEAN CORPUSCULAR VOLUME 81.5 fL (80-100); NEUTROPHILS PERCENT AUTO 65.2 % (42.2-75.2); PLATELET COUNT,PLT 356 10^3/uL (150-450); WHITE BLOOD CELL COUNT,WBC 7.4 10^3/uL (5.0-10.0)
[2023-06-20 20:39] LABS: ANION GAP 11.7 mEq/L (7-13); BLOOD UREA NITROGEN,BUN 9 mg/dL (7-18); CALCIUM 8.5 mg/dL (8.5-10.1); CARBON DIOXIDE,CO2 29 mmol/L (21-32); CHLORIDE,CL 107 mmol/L (98-107); CREATININE 0.63 mg/dL (0.55-1.02); ETHANOL BLOOD MEDICAL 151 mg/dL (0); GLUCOSE RANDOM 91 mg/dL (70-99); POTASSIUM,K 3.7 mmol/L (3.5-5.1); SODIUM,NA 144 mmol/L (136-145)
[2023-06-20] MEDS: MVI, Adult with Vitamin K 10 ML, Folic Acid 1 MG, Thiamine 100 MG in Lactated Ringers 1... IV ONE (20:51)
[2023-06-20] MEDS: cloNIDine 0.1 MG Tab PO ONE ×2 (20:52→23:09)
[2023-06-20] MEDS: chlordiazePOXIDE 25 MG Cap PO ONE ×3 (20:56→23:09)
[2023-06-20 20:57] LABS: ESTIMATED GFR 114 mL/min (>=60)
[2023-06-20 21:06] LABS: AMPHETAMINES,URINE NEGATIVE (NEGATIVE); BARBITURATES,URINE NEGATIVE (NEGATIVE); BENZODIAZEPINE,URINE NEGATIVE (NEGATIVE); MDMA (ECSTASY), URINE NEGATIVE (NEGATIVE); METHADONE,URINE NEGATIVE (NEGATIVE); METHAMPHETAMINES,URINE NEGATIVE (NEGATIVE); OPIATES,URINE NEGATIVE (NEGATIVE); OXYCODONE,URINE NEGATIVE (NEGATIVE); PHENCYCLIDINE,URINE NEGATIVE (NEGATIVE); TCA,URINE NEGATIVE (NEGATIVE)
[2023-06-20 21:07] LABS: APPEARANCE,URINE CLEAR (CLEAR); BILIRUBIN,URINE NEGATIVE (NEGATIVE); COLOR,URINE YELLOW (YELLOW); GLUCOSE,URINE NEGATIVE (NEGATIVE); KETONES,URINE NEGATIVE (NEGATIVE); LEUKOCYTE ESTERASE,URINE NEGATIVE (NEGATIVE); NITRITE,URINE NEGATIVE (NEGATIVE); OCCULT BLOOD,URINE LARGE (NEGATIVE); PH,URINE 6.5 (5.0-9.0); PROTEIN,URINE NEGATIVE (NEGATIVE); UROBILINOGEN,URINE 0.2 mg/dL (0.2-1.0)
[2023-06-20 21:23] LABS: BACTERIA,URINE RARE /HPF (0-FEW/HPF); EPITHELIAL CELLS,URINE RARE /HPF (NOT SEEN); RBC,URINE 0-5 /HPF (0-5); WBC,URINE NOT SEEN /HPF (0-5/HPF)
[2023-06-20] MEDS: Magnesium Sulfate/Water 2 GM in Premix Bag 1 BAG IV ONE (21:41)
== END 2023-06-20 23:15 | disposition home or self-care (01) ==
LOC: DL.ED 20:09
DX: F10.130 Alcohol abuse with withdrawal, uncomplicated (principal); Z88.0 Allergy status to penicillin; Y90.9 Presence of alcohol in blood, level not specified
CPT/HCPCS: 36415; 80048; 80305; 80307; 81001; 81025; 83735; 85025; 93005; 96365; 96367; 99285; A9270; J3411; J3475; J7120; J3490

== ENCOUNTER 2023-07-15 03:48 | Emergency (ER) | payer MEDICAID ==
[~2023-07-15 03:48] MED LIST: Sodium Chloride 0.9% 10 ML Syringe FLUSH PRN
[2023-07-15 03:58] LABS: HEMATOCRIT 39.6 % (37.0-47.0); HEMOGLOBIN 12.6 g/dL (12.0-16.0); MEAN CORPUSCULAR HEMOGLOBIN 26.3 pg (27.0-34.0); MEAN CORPUSCULAR HGB CONC 31.8 g/dL (33.0-35.0); MEAN CORPUSCULAR VOLUME 82.5 fL (80-100); PLATELET COUNT,PLT 348 10^3/uL (150-450); WHITE BLOOD CELL COUNT,WBC 11.9 10^3/uL (5.0-10.0)
[2023-07-15 04:04] LABS: BASOPHILS PERCENT AUTO 0.3 % (0.0-1.0); EOSINOPHILS PERCENT AUTO 2.7 % (1.0-3.0); LYMPHOCYTES PERCENT AUTO 24.2 % (20.5-50.1); MONOCYTES PERCENT AUTO 6.7 % (2-8); NEUTROPHILS PERCENT AUTO 66.1 % (42.2-75.2)
[2023-07-15 04:16] LABS: INR 0.9 (0.9-1.2); PROTHROMBIN TIME 9.4 SEC (9.0-12.0); PTT,PARTIAL THROMBOPLSTIN TIME 22.7 SEC (22.0-34.0)
[2023-07-15 04:31] LABS: AMPHETAMINES,URINE NEGATIVE (NEGATIVE); BARBITURATES,URINE NEGATIVE (NEGATIVE); BENZODIAZEPINE,URINE POSITIVE (NEGATIVE); MDMA (ECSTASY), URINE NEGATIVE (NEGATIVE); METHADONE,URINE NEGATIVE (NEGATIVE); METHAMPHETAMINES,URINE NEGATIVE (NEGATIVE); OPIATES,URINE NEGATIVE (NEGATIVE); OXYCODONE,URINE NEGATIVE (NEGATIVE); PHENCYCLIDINE,URINE NEGATIVE (NEGATIVE); TCA,URINE NEGATIVE (NEGATIVE)
[2023-07-15 04:39] LABS: ALANINE AMINOTRANSFERASE,ALT 39 U/L (14-59); ALBUMIN 3.2 g/dL (3.4-5.0); ALKALINE PHOSPHATASE 87 U/L (46-116); ANION GAP 17.3 mEq/L (7-13); ASPARTATE AMNIOTRANSFERASE,AST 44 U/L (15-37); BILIRUBIN TOTAL 0.1 mg/dL (0.2-1.0); BLOOD UREA NITROGEN,BUN 11 mg/dL (7-18); BUN/CREATININE RATIO 15.7 (No establ ref range); CALCIUM 8.1 mg/dL (8.5-10.1); CARBON DIOXIDE,CO2 22 mmol/L (21-32); CHLORIDE,CL 104 mmol/L (98-107); GLUCOSE RANDOM 156 mg/dL (70-99); MAGNESIUM 1.7 mg/dL (1.8-2.4); POTASSIUM,K 3.3 mmol/L (3.5-5.1); PROTEIN TOTAL,TP 7.4 g/dL (6.4-8.2); SODIUM,NA 140 mmol/L (136-145)
[2023-07-15] MEDS ORDERED: Diphtheria,Pertussis(Acell),Tetanus Vaccine 0.5 ML Syringe IM ONE (04:39)
[2023-07-15] MEDS ORDERED: MVI, Adult with Vitamin K 10 ML, Folic Acid 1 MG, Thiamine 100 MG in Lactated Ringers 1... IV ONE (04:40)
[2023-07-15 04:45] LABS: BAND PERCENT MAN 4 %; SEG NEUTROPHILS PERCENT MAN 65 % (42-75)
[2023-07-15 04:46] LABS: EOSINOPHILS PERCENT MAN 1 % (1-3); LYMPHOCYTES % ATYPICAL MANUAL 2 %; LYMPHOCYTES PERCENT MAN 24 % (20-50); MONOCYTES PERCENT MAN 4 % (2-8)
[2023-07-15 04:50] LABS: A/G RATIO 0.76; ESTIMATED GFR 111 mL/min (>=60); ETHANOL BLOOD MEDICAL 368 mg/dL (0)
[2023-07-15] MEDS ORDERED: Acetaminophen 500 MG Tab PO ONE (04:55)
== END 2023-07-15 07:23 | disposition home or self-care (01) ==
LOC: DL.ED 03:48
DX: S01.01XA Laceration without foreign body of scalp, initial encounter (principal); F10.120 Alcohol abuse with intoxication, uncomplicated; Y04.8XXA Assault by other bodily force, initial encounter; Z88.0 Allergy status to penicillin
CPT/HCPCS: 12001; 36415; 70450; 70486; 71045; 72125; 80053; 80305-QW; 80307; 81025; 83735; 85025; 85610; 85730; 90471; 96365; 99283; 99284-25

== ENCOUNTER 2023-09-16 17:48 | Emergency (ER) | payer MEDICAID | END 2023-09-16 17:50 | disposition left against medical advice (07) | LOC: DL.ED 17:48 | DX: Z53.21 Procedure and treatment not carried out due to patient leaving prior to being seen by health care provider (principal) ==

== ENCOUNTER 2024-02-18 18:03 | Emergency (ER) | payer MEDICAID ==
[2024-02-18 18:39] LABS: BASOPHILS PERCENT AUTO 0.7 % (0.0-1.0); EOSINOPHILS PERCENT AUTO 1.6 % (1.0-3.0); HEMATOCRIT 38.6 % (37.0-47.0); HEMOGLOBIN 12.2 g/dL (12.0-16.0); LYMPHOCYTES PERCENT AUTO 37.7 % (20.5-50.1); MEAN CORPUSCULAR HEMOGLOBIN 25.7 pg (27.0-34.0); MEAN CORPUSCULAR HGB CONC 31.6 g/dL (33.0-35.0); MEAN CORPUSCULAR VOLUME 81.3 fL (80-100); MONOCYTES PERCENT AUTO 8.3 % (2-8); NEUTROPHILS PERCENT AUTO 51.7 % (42.2-75.2); PLATELET COUNT,PLT 367 10^3/uL (150-450); RED BLOOD CELL COUNT 4.75 10^6/uL (4.2-5.4); WHITE BLOOD CELL COUNT,WBC 7.5 10^3/uL (5.0-10.0)
[2024-02-18] MEDS: MVI, Adult with Vitamin K 10 ML, Folic Acid 1 MG, Thiamine 100 MG in Lactated Ringers 1... IV ONE (18:48)
[2024-02-18 19:02] LABS: ALANINE AMINOTRANSFERASE,ALT 16 U/L (14-59); ALBUMIN 3.3 g/dL (3.4-5.0); ALKALINE PHOSPHATASE 82 U/L (46-116); ANION GAP 13.5 mEq/L (7-13); ASPARTATE AMNIOTRANSFERASE,AST 8 U/L (15-37); BILIRUBIN TOTAL 0.1 mg/dL (0.2-1.0); BLOOD UREA NITROGEN,BUN 13 mg/dL (7-18); BUN/CREATININE RATIO 13.5 (No establ ref range); CALCIUM 7.6 mg/dL (8.5-10.1); CARBON DIOXIDE,CO2 28 mmol/L (21-32); CHLORIDE,CL 108 mmol/L (98-107); CREATININE 0.96 mg/dL (0.55-1.02); GLUCOSE RANDOM 124 mg/dL (70-99); INR 0.9 (0.9-1.2); LIPASE 39 U/L (16-77); POTASSIUM,K 3.5 mmol/L (3.5-5.1); PROTEIN TOTAL,TP 7.1 g/dL (6.4-8.2); PROTHROMBIN TIME 9.3 SEC (9.0-12.0); SODIUM,NA 146 mmol/L (136-145)
[2024-02-18 19:08] LABS: A/G RATIO 0.87; ESTIMATED GFR 76 mL/min (>=60)
[2024-02-18 19:09] LABS: ETHANOL BLOOD MEDICAL 490 mg/dL (0)
[2024-02-18 23:12] LABS: APPEARANCE,URINE CLEAR (CLEAR); BILIRUBIN,URINE NEGATIVE (NEGATIVE); COLOR,URINE YELLOW (YELLOW); GLUCOSE,URINE NEGATIVE (NEGATIVE); KETONES,URINE NEGATIVE (NEGATIVE); LEUKOCYTE ESTERASE,URINE NEGATIVE (NEGATIVE); NITRITE,URINE NEGATIVE (NEGATIVE); OCCULT BLOOD,URINE NEGATIVE (NEGATIVE); PH,URINE 6.5 (5.0-9.0); PROTEIN,URINE NEGATIVE (NEGATIVE); UROBILINOGEN,URINE 0.2 mg/dL (0.2-1.0)
[2024-02-18 23:13] LABS: AMPHETAMINES,URINE NEGATIVE (NEGATIVE); BARBITURATES,URINE NEGATIVE (NEGATIVE); BENZODIAZEPINE,URINE NEGATIVE (NEGATIVE); MDMA (ECSTASY), URINE NEGATIVE (NEGATIVE); METHADONE,URINE NEGATIVE (NEGATIVE); METHAMPHETAMINES,URINE NEGATIVE (NEGATIVE); OPIATES,URINE NEGATIVE (NEGATIVE); OXYCODONE,URINE NEGATIVE (NEGATIVE); PHENCYCLIDINE,URINE NEGATIVE (NEGATIVE); TCA,URINE NEGATIVE (NEGATIVE)
[2024-02-18] MEDS: Famotidine 20 MG/2 ML SDV IVPUSH ONE (23:47)
== END 2024-02-19 10:25 | disposition home or self-care (01) ==
LOC: DL.ED 18:03
DX: F10.121 Alcohol abuse with intoxication delirium (principal); F17.200 Nicotine dependence, unspecified, uncomplicated; Z88.0 Allergy status to penicillin; Y90.7 Blood alcohol level of 200-239 mg/100 ml
CPT/HCPCS: 36415; 80053; 80305; 80307; 81003; 81025; 83690; 83735; 84484; 85025; 85610; 93005; 96365; 96375; 99285; J3411; J3490; J7120

== ENCOUNTER 2024-10-04 22:58 | Emergency (ER) | payer MEDICAID | END 2024-10-05 00:25 | disposition left against medical advice (07) | LOC: DL.ED 22:58 | DX: S92.351A Displaced fracture of fifth metatarsal bone, right foot, initial encounter for closed fracture (principal); S82.832A Other fracture of upper and lower end of left fibula, initial encounter for closed fracture; F17.200 Nicotine dependence, unspecified, uncomplicated; Z88.0 Allergy status to penicillin; W19.XXXA Unspecified fall, initial encounter | CPT/HCPCS: 73610-LT; 73630-LT; 73630-RT; 99284 ==

== ENCOUNTER 2024-10-19 12:51 | Emergency (ER) | payer MEDICAID ==
[2024-10-19] MEDS ORDERED: Sodium Chloride 0.9% 10 ML Syringe FLUSH PRN (13:05)
[2024-10-19 13:16] LABS: BASOPHILS PERCENT AUTO 0.5 % (0.0-1.0); EOSINOPHILS PERCENT AUTO 4.3 % (1.0-3.0); LYMPHOCYTES PERCENT AUTO 43.6 % (20.5-50.1); MONOCYTES PERCENT AUTO 7.0 % (2-8); NEUTROPHILS PERCENT AUTO 44.6 % (42.2-75.2); PLATELET COUNT,PLT 367 10^3/uL (150-450); RED BLOOD CELL COUNT 4.69 10^6/uL (4.2-5.4); WHITE BLOOD CELL COUNT,WBC 6.0 10^3/uL (5.0-10.0)
[2024-10-19] MEDS: MVI, Adult with Vitamin K 10 ML, Folic Acid 1 MG, Thiamine 100 MG in Lactated Ringers 1... IV ONE (13:17)
[2024-10-19 13:34] LABS: INR 0.9 (0.9-1.2); PTT,PARTIAL THROMBOPLSTIN TIME 23.7 SEC (22.0-34.0)
[2024-10-19 13:44] LABS: AMPHETAMINES,URINE NEGATIVE (NEGATIVE); BARBITURATES,URINE NEGATIVE (NEGATIVE); MDMA (ECSTASY), URINE NEGATIVE (NEGATIVE); METHAMPHETAMINES,URINE NEGATIVE (NEGATIVE); OPIATES,URINE NEGATIVE (NEGATIVE); OXYCODONE,URINE NEGATIVE (NEGATIVE); PHENCYCLIDINE,URINE NEGATIVE (NEGATIVE); TCA,URINE NEGATIVE (NEGATIVE)
[2024-10-19 13:48] LABS: LACTIC ACID 1.3 mmol/L (0.4-2.0)
[2024-10-19 13:53] LABS: ALANINE AMINOTRANSFERASE,ALT 67 U/L (14-59); ASPARTATE AMNIOTRANSFERASE,AST 76 U/L (15-37); BILIRUBIN TOTAL 0.4 mg/dL (0.2-1.0); BLOOD UREA NITROGEN,BUN 9 mg/dL (7-18); CARBON DIOXIDE,CO2 26 mmol/L (21-32); CHLORIDE,CL 106 mmol/L (98-107); CREATININE 0.67 mg/dL (0.55-1.02); EST CRCL DRUG DOSING (CG) 114.31 mL/min; GLUCOSE RANDOM 96 mg/dL (70-99); POTASSIUM,K 3.6 mmol/L (3.5-5.1); PROTEIN TOTAL,TP 7.2 g/dL (6.4-8.2); SODIUM,NA 141 mmol/L (136-145)
[2024-10-19 13:55] LABS: A/G RATIO 0.85; ESTIMATED GFR 112 mL/min (>=60); ETHANOL BLOOD MEDICAL 362 mg/dL (0)
== END 2024-10-19 14:30 | disposition home or self-care (01) ==
LOC: DL.ED 12:51
DX: F10.120 Alcohol abuse with intoxication, uncomplicated (principal); F17.210 Nicotine dependence, cigarettes, uncomplicated; Z88.0 Allergy status to penicillin; Y90.8 Blood alcohol level of 240 mg/100 ml or more
CPT/HCPCS: 36415; 80053; 80305; 80307; 81025; 83605; 83690; 83735; 84484; 85025; 85610; 85730; 86140; 93010; 96365; 96372; 99284; J1630; J1808; J3411; J7120; J3490